=== PATIENT | female | born 1960 | race Caucasian/White ===

== ENCOUNTER → 2016-12-04 | Outpatient (CLI) | payer BC ==
[~2016-12-04] MED LIST: BIOT1CAP8 PO; CHOL1TAB42 PO; FLAX1CAP11 PO; FLUT0.15 NAE; OMEGCAP2 PO; OMEP10CA2 PO; VITAMIN B12 PO; [UNRECOGNIZED DRUG - CODE] PO
--- NOTE | 2016-12-04 07:59 | MAMMOGRAPHY REPORT ---
BILATERAL DIGITAL SCREENING MAMMOGRAM TOMOSYNTHESIS WITH CAD: 12/04/2016 TECHNIQUE: Breast tomosynthesis in addition to standard 2D mammography was performed. Current study was also evaluated with a Computer Aided Detection (CAD) system. COMPARISON: Comparison is made to exams dated: 12/03/2015 mammogram, 11/26/2014 mammogram, 11/23/2013 m ammogram, 11/21/2012 mammogram, 11/02/2011 aspiration, and 10/29/2011 ultrasound - [facility]. BREAST COMPOSITION: The tissue of both breasts is heterogeneously dense, which may obscure small mas ses. FINDINGS: No suspicious masses, calcifications, or areas of architectural distortion are noted in ei ther breast. There has been no significant interval change compared to prior exams. IMPRESSION: ACR BI-RADS CATEGORY 1: NEGATIVE There is no mammographic evidence of malignancy. A 1 year screening mammogram is recommended. The pa tient will receive written notification of the results. Approximately 10% of breast cancers are not detected with mammography. A negative mammographic report should not delay biopsy if a clinically suggestive mass is present. Brenna Manzo M.D. /:12/04/2016 07:38:37 Safety Technician: Kelly CRUZ(R)(M), [facility] letter sent: Normal 1/2 BI-RADS Code: ACR BI-RADS Category 1: Negative
== END | disposition home or self-care (01) ==
LOC: C.MAMM 07:11
PROVIDERS: ATTEND Internal Medicine
DX: Z12.31 Encounter for screening mammogram for malignant neoplasm of breast (principal)

== ENCOUNTER 2017-08-23 13:20 | Emergency (ER) | payer BC, OTHER ==
[~2017-08-23] VITALS: Ht 162.6 cm; Wt 75.2 kg
[2017-08-23 13:31] VITALS: TEMP 36.7; Ht 162.6 cm; Wt 75.2 kg
[2017-08-23] MEDS ORDERED: PRED10TA PO (14:12)
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
[2017-08-23] MEDS ORDERED: METRONIDAZOLE 250 MG TAB PO STA (15:31)
[2017-08-23] MEDS ORDERED: METR-163 PO (15:34)
[2017-08-23] MEDS ORDERED: SULF800T23 PO (15:34)
[2017-08-23] MEDS ORDERED: SULFAMETHOXAZOLE/TRIMETHOPRIM DS 800/160MG TAB PO ONE (15:45)
[2017-08-23 16:22] VITALS: BP 123/82; PULSE 91; O2SAT 97
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
== END 2017-08-23 16:21 | disposition home or self-care (01) ==
LOC: C.EDB 13:24 → C.EDD 16:21
DX: T14.8XXA Other injury of unspecified body region, initial encounter (principal); S61.250A Open bite of right index finger without damage to nail, initial encounter; L03.011 Cellulitis of right finger; Y04.1XXA Assault by human bite, initial encounter; Y92.019 Unspecified place in single-family (private) house as the place of occurrence of the external cause; Y07.01 Husband, perpetrator of maltreatment and neglect; F17.210 Nicotine dependence, cigarettes, uncomplicated

== ENCOUNTER 2018-01-29 16:49 | Emergency (ER) | payer OTHER ==
[~2018-01-29] VITALS: Ht 162.6 cm; Wt 64.4 kg
[~2018-01-29 16:49] MED LIST changes: -BIOT1CAP8 PO; -CHOL1TAB42 PO; -FLAX1CAP11 PO; -FLUT0.15 NAE; -OMEGCAP2 PO; -OMEP10CA2 PO; +PRED10TA PO; -VITAMIN B12 PO; -[UNRECOGNIZED DRUG - CODE] PO
[2018-01-29 16:53] VITALS: TEMP 36.5; Ht 162.6 cm; Wt 64.4 kg
[2018-01-29] MEDS ORDERED: BACITRACIN OINT 15 GM TUBE EXT STA (17:19)
[2018-01-29] MEDS ORDERED: MUPIROCIN 2% OINT 22 GM TUBE EXT STA (17:20)
--- NOTE | 2018-01-29 17:22 | EMERGENCY ROOM VISIT NOTE ---
History First contact with patient: 16:56 Chief Complaint: BITE Stated Complaint: BUG BITE ON BACK, RING AROUND IT History of Present Illness The patient is a 57 year old female who presents to the Emergency Room via private vehicle accompanied by female with complaints of "bug bite on back, ring around it". The patient notes that about 10 days ago she was sitting on the couch when she felt some the bite her back. This is in the right lower back region. She states that she brushed it away did not think much of it. She had her friend checked the region a few days ago and it was feeling itchy and the note redness to it. They were concerned therefore prompting her arrival here today. Her tetanus is up-to-date. She denies any pain. No drainage. Review of Systems A complete 6-point Review of Systems was discussed with the patient, with pertinent positives and negatives listed in the History of Present Illness. All remaining Review of Systems questions can be considered negative unless otherwise specified. Past Medical/Surgical History Medical Problems: (1) Joint Pain-Shlder (2) Sterilization (3) Tobacco Use Disorder Social History Smoking Status: Current Every Day Smoker Alcohol Use: occasionally Marital Status: Occupation Status: employed Current/Historical Medications Scheduled Atorvastatin (Lipitor), 20 MG PO DAILY Folic Acid (Folic Acid), 1 MG PO WK Methotrexate (Methotrexate), 3 TAB PO UD Mupirocin (Bactroban 2% Oint), 1 APPLN EXT Q8 Omeprazole (Prilosec), 20 MG PO DAILY Sertraline HCl (Sertraline HCl), 50 MG PO DAILY Scheduled PRN Lorazepam (Lorazepam), 0.5 MG PO HS PRN for Sleep Physical Exam Vital Signs Date Time Temp Pulse Resp B/P (MAP) Pulse Ox O2 Delivery O2 Flow Rate FiO2 01/29/18 17:38 71 16 103/76 97 01/29/18 16:53 36.5 91 20 114/73 96 Room Air Physical Exam VITAL SIGNS - Vital signs and nursing notes were reviewed. Stable. Afebrile. GENERAL -57-year-old female appearing her stated age who is in no acute distress. Communicates well with provider and answers questions appropriately. SKIN -there is a small 5 mm in diameter slightly ulcerated region with a dried area yellow crust in the right low back region. Surrounding this there is a 13 mm erythematous region. There is no central clearing. Nonraised. No drainage. HEAD - NC/AT. EYES - Sclera anicteric. EARS - No deformities of external structures noted on gross examination bilaterally. NOSE - Midline and without cyanosis. No epistaxis or purulent drainage noted. MOUTH/OROPHARYNX - Without perioral cyanosis. MUSCULOSKELETAL: Skin changes noted above on the back. No other rashes noted. NEUROLOGIC - Cranial nerves II through XII grossly intact. Sensory intact to light touch throughout. PSYCH - A&O, and cooperates fully with examiner. Pt is very pleasant and interacts well with examiner. Medical Decision & Procedures Medications Administered Medications (Trade) Dose Ordered Sig/Berry Route Start Time Stop Time Status Last Admin Dose Admin Mupirocin (Bactroban 2% Oint) 1 appln NOW STAT EXT 01/29/18 17:20 01/29/18 17:21 DC 01/29/18 17:20 1 APPLN Medical Decision Patient was seen and evaluated as above in room D3. Review was performed of nursing notes and vital signs. After obtaining a thorough history and physical examination the above work up was performed. She presents today with a 13 mm erythematous region to the right lower back skin. There is a central region that is slightly ulcerated. It looks like this may been draining a little bit of pus that has now dried over. It is small in nature and not raised. No central region of clearing or evidence of erythema migrans. No retained tick visible. Patient history is more concerning with that of some type of insect bite rather than a tick bite given that she felt something bite her instantaneously and then white/brush the area off. No systemic symptoms noted. Vital signs are stable. Benefit versus risk was thoroughly discussed with the patient regarding oral versus topical antibiotic versus both. At this time given the small size, and the minimal amount of erythema with stable vital signs I believe the topical antibiotics are warranted right now. She will be given mupirocin/Bactroban. She is to watch the region. Dressing changes daily with ointment applied every 8 hours. She is to follow with the family doctor by calling the Wednesday. She is to return with worsening. I outlined the area with a skin marking pen. Again no evidence of Lyme disease or emergent process. Tetanus is up-to-date. I did offer her oral antibiotics for treating any slight/potential chance of Lyme and at this time through shared decision making will defer depending upon her treatment course/progress. The patient was educated upon management, educated upon todays findings/results, educated upon symptoms in which to return, had questions answered prior to discharge, and was discharged home in good condition. In the evaluation and treatment of this patient the following differential diagnoses were entertained: Cellulitis, skin irritation, Lyme disease, among others Impression Primary Impression: Insect bites Additional Impression: Cellulitis Departure Information Dispostion Home / Self-Care Condition GOOD Prescriptions Mupirocin (Bactroban 2% Oint) 66 Appln/22 Gm Oint 1 APPLN EXT Q8 for 10 Days, #1 TUBE Prov: Tyler Soliz PA-C 01/29/18 Referrals Charli Higuera MD (PCP) Patient Instructions My [facility] Additional Instructions You were seen in the emergency department for redness to the right lower back region. I suspect this is likely from some type of insect bite as we discussed however at this time believe you are getting a secondary small skin infection/ irritation from pant waist line. Please use the Bactroban/mupirocin every 8 hours for 10 days. If you run out of the ointment we have provided you here the remainder is at the pharmacy. Again this is only for 10 days. Please call your family doctor to schedule follow-up on Wednesday to recheck the wound. If you develop fevers, chills, redness would severely worsen please return. Please return with any new/concerning symptoms. Problem Qualifiers
[2018-01-29] MEDS ORDERED: ATV5X PO (17:23)
[2018-01-29] MEDS ORDERED: ATOR-22 PO (17:23)
[2018-01-29] MEDS ORDERED: MTH25 PO (17:23)
[2018-01-29] MEDS ORDERED: FLV1 PO (17:23)
[2018-01-29] MEDS ORDERED: OMEP20CA9 PO (17:23)
[2018-01-29] MEDS ORDERED: ZLF/50 PO (17:23)
[2018-01-29] MEDS ORDERED: BCTROWC EXT (17:29)
[2018-01-29 17:38] VITALS: BP 103/76; PULSE 71; O2SAT 97
== END 2018-01-29 17:39 | disposition home or self-care (01) ==
LOC: C.EDB 16:52 → C.EDD 17:39
DX: S30.860A Insect bite (nonvenomous) of lower back and pelvis, initial encounter (principal); W57.XXXA Bitten or stung by nonvenomous insect and other nonvenomous arthropods, initial encounter; F17.200 Nicotine dependence, unspecified, uncomplicated; L03.90 Cellulitis, unspecified